=== PATIENT | female | born 1995 | race Caucasian/White ===

== ENCOUNTER 2018-05-24 23:35 | Inpatient (IN) | payer BC ==
[~2018-05-24] VITALS: Ht 162.6 cm; Wt 61.2 kg
[2018-05-24] MEDS ORDERED: birth control PO (23:48)
--- NOTE | 2018-05-24 23:54 | ER Report ---
History and Physical Time Seen By MD: 23:45 Hx. of Stated Complaint: Patient states she started feeling bad 1500, with a fever of 103. Also reports diarrhea and abdominal pain HPI/ROS CHIEF COMPLAINT: Diarrhea, abdominal pain, fever HISTORY OF PRESENT ILLNESS: 23-year-old female has had fever, lower abdominal pain and cramping, loose stool since 3 PM. She has not had bloody or black stool, denies mucus, and has not had recent antibiotics. She denies recent travel other than to [place] one month ago. She has no sick contacts. She has not gradually worse throughout the day with fever, chills, myalgias at this poi nt. She denies significant headache, sore throat, chest pain or trouble breathing, flank pain, change in urination, vaginal bleeding or discharge. Her last menstrual period was 3 weeks ago and this was normal for her. She denies rash, swollen extremities. Her abdominal pain is bilateral lower abdomen, crampy, moderate, constant, no significant exacerbating or relieving factors. REVIEW OF SYSTEMS: Constitutional: above Eyes: No discharge. ENT: No sore throat. Cardiovascular: No chest pain, no palpitations. Respiratory: No cough, no shortness of breath. Gastrointestinal: above Genitourinary: no dysuria Musculoskeletal: No back pain. Skin: No rashes. Neurological: No headache. Remainder of the 14 system rev: Yes Allergies: Coded Allergies: No Known Drug Allergies (Unverified , 05/24/18) Home Meds Reported Medications [ control ] No Conflict Check, 1 TAB PO DAILY 05/24/18 Reviewed Nurses Notes: Yes Constitutional Vital Sign - Last 24 Hours 05/24/18 05/24/18 05/25/18 05/25/18 23:38 23:39 00:05 00:30 Temp 100.3 Pulse 93 Resp 19 B/P (MAP) 122/76 122/76 (91) 115/66 (82) Pulse Ox 93 94 O2 Delivery Room Air 05/25/18 05/25/18 05/25/18 05/25/18 00:35 00:44 01:00 01:05 Temp 98.9 Pulse 121 123 B/P (MAP) 116/70 (85) Pulse Ox 95 94 05/25/18 05/25/18 05/25/18 05/25/18 01:30 02:00 02:05 02:10 Pulse 131 133 B/P (MAP) 114/71 (85) 106/69 (81) Pulse Ox 91 95 05/25/18 05/25/18 05/25/18 05/25/18 02:40 03:00 03:05 03:15 Temp 100.8 Pulse 130 121 122 B/P (MAP) 95/59 (71) Pulse Ox 95 95 05/25/18 05/25/18 05/25/18 05/25/18 03:22 03:30 03:35 04:00 B/P (MAP) 105/71 (82) 95/64 (74) 112/72 (85) Pulse Ox 96 05/25/18 05/25/18 05/25/18 05/25/18 04:05 04:10 04:15 04:22 Temp 98.0 Pulse 105 108 B/P (MAP) 114/74 (87) Pulse Ox 95 95 Intake and Output 05/24/18 05/24/18 05/25/18 15:00 23:00 07:00 Intake Total 3000 ml Balance 3000 ml Physical Exam General Appearance: The patient is alert, has no immediate need for airway protection and no signs of toxicity. Eyes: Pupils equal and round no pallor or injection. ENT, Mouth: Mucous membranes are moist. Respiratory: There are no retractions, lungs are clear to auscultation. Cardiovascular: tachycardia to 130 Gastrointestinal: hyperactive bowel sounds, mild bilateral lower quadrant ttp without peritoneal sgs or distension Neurological: alert, moves all ext Skin: Warm and dry, no rashes. Musculoskeletal: Extremities are nontender, nonswollen and have full range of motion. DIFFERENTIAL DIAGNOSIS: After history and physical exam differential diagnosis was considered for adult fever including but not limited to viral syndromes including influenza, urinary tract infection, pneumonia and sepsis.abdominal pain including but not limited to appendicitis, cholecystitis, gastritis and urinary tract infection. Medical Decision Making Data Points Result Diagram: 05/25/18 0345 05/25/18 0000 Laboratory Hematology Test 05/25/18 00:00 05/25/18 00:06 05/25/18 00:43 05/25/18 03:45 Sodium Level 136 mmol/L (137-145) Potassium Level 3.7 mmol/L (3.5-5.0) Chloride Level 109 mmol/L (98-107) Carbon Dioxide Level 17 mmol/L (22-31) Blood Urea Nitrogen 8 mg/dl (7-18) Creatinine 0.80 mg/dl (0.52-1.04) Glomerular Filtration Rate Calc > 60.0 Random Glucose 120 mg/dl (75-110) Calcium Level 9.6 mg/dl (8.4-10.2) Total Bilirubin 0.7 mg/dl (0.2-1.3) Aspartate Amino Transf (AST/SGOT) 22 U/L (0-35) Alanine Aminotransferase (ALT/SGPT) 26 U/L (0-56) Alkaline Phosphatase 70 U/L (0-126) Total Protein 7.7 g/dl (6.3-8.2) Albumin 4.4 g/dl (3.5-5.0) Lipase 108 U/L (23-300) Human Chorionic Gonadotropin, Qual Negative (NEGATIVE) Influenza Virus Type A (PCR) Negative (NEGATIVE) Influenza Virus Type B (PCR) Negative (NEGATIVE) Urine Color Yellow Urine Clarity Slightly-cloudy Urine pH 5.0 pH (4.8-9.5) Urine Specific [place] 1.027 Urine Protein 30 mg/dL (NEGATIVE) Urine Glucose (UA) Negative mg/dL (NEGATIVE) Urine Ketones 20 mg/dL (NEGATIVE) Urine Blood Negative (NEGATIVE) Urine Nitrite Negative (NEGATIVE) Urine Bilirubin Negative (NEGATIVE) Urine Urobilinogen Negative mg/dL (0.2-1.9) Urine Leukocyte Esterase Negative (NEGATIVE) Urine RBC 1 /HPF (0-2/HPF) Urine WBC 2 /HPF (0-5/HPF) Urine Squamous Epithelial Cells Many /LPF (</=FEW) Urine Transitional Epithelial Cells Few /LPF (NONE-FEW) Urine Bacteria Negative /HPF (NONE-FEW) Urine Mucus Few /HPF (NONE-FEW) Red Blood Count 4.26 M/uL (4.17-5.56) Mean Corpuscular Volume 89.3 fL (80.0-96.0) Mean Corpuscular Hemoglobin 30.4 pg (26.0-33.0) Mean Corpuscular Hemoglobin Concent 34.1 g/dL (32.0-36.0) Red Cell Distribution Width 12.5 % (11.5-14.5) Mean Platelet Volume 7.8 fL (7.2-11.1) Neutrophils (%) (Auto) % (39.4-72.5) Lymphocytes (%) (Auto) % (17.6-49.6) Monocytes (%) (Auto) % (4.1-12.4) Eosinophils (%) (Auto) % (0.4-6.7) Basophils (%) (Auto) % (0.3-1.4) Nucleated RBC Relative Count (auto) /100WBC Neutrophils # (Auto) K/uL (2.0-7.4) Lymphocytes # (Auto) K/uL (1.3-3.6) Monocytes # (Auto) K/uL (0.3-1.0) Eosinophils # (Auto) K/uL (0.0-0.5) Basophils # (Auto) K/uL (0.0-0.1) Nucleated RBC Absolute Count (auto) K/uL Neutrophils % (Manual) 55 % (39.4-72.5) Band Neutrophils % 33 % Lymphocytes % (Manual) 5 % (17.6-49.6) Monocytes % (Manual) 4 % (4.1-12.4) Eosinophils % (Manual) 0 % (0.4-6.7) Basophils % (Manual) 2 % (0.3-1.4) Metamyelocytes % 1 % Peripheral Blood Smear Yes Y/N Lactate 1.5 mmol/L (0.7-2.1) Chemistry Test 05/25/18 00:00 05/25/18 00:06 05/25/18 00:43 05/25/18 03:45 Glomerular Filtration Rate Calc > 60.0 Calcium Level 9.6 mg/dl (8.4-10.2) Total Bilirubin 0.7 mg/dl (0.2-1.3) Aspartate Amino Transf (AST/SGOT) 22 U/L (0-35) Alanine Aminotransferase (ALT/SGPT) 26 U/L (0-56) Alkaline Phosphatase 70 U/L (0-126) Total Protein 7.7 g/dl (6.3-8.2) Albumin 4.4 g/dl (3.5-5.0) Lipase 108 U/L (23-300) Human Chorionic Gonadotropin, Qual Negative (NEGATIVE) Influenza Virus Type A (PCR) Negative (NEGATIVE) Influenza Virus Type B (PCR) Negative (NEGATIVE) Urine Color Yellow Urine Clarity Slightly-cloudy Urine pH 5.0 pH (4.8-9.5) Urine Specific [place] 1.027 Urine Protein 30 mg/dL (NEGATIVE) Urine Glucose (UA) Negative mg/dL (NEGATIVE) Urine Ketones 20 mg/dL (NEGATIVE) Urine Blood Negative (NEGATIVE) Urine Nitrite Negative (NEGATIVE) Urine Bilirubin Negative (NEGATIVE) Urine Urobilinogen Negative mg/dL (0.2-1.9) Urine Leukocyte Esterase Negative (NEGATIVE) Urine RBC 1 /HPF (0-2/HPF) Urine WBC 2 /HPF (0-5/HPF) Urine Squamous Epithelial Cells Many /LPF (</=FEW) Urine Transitional Epithelial Cells Few /LPF (NONE-FEW) Urine Bacteria Negative /HPF (NONE-FEW) Urine Mucus Few /HPF (NONE-FEW) White Blood Count 15.1 k/uL (4.5-11.0) Red Blood Count 4.26 M/uL (4.17-5.56) Hemoglobin 13.0 g/dL (12.0-16.0) Hematocrit 38.0 % (34.0-47.0) Mean Corpuscular Volume 89.3 fL (80.0-96.0) Mean Corpuscular Hemoglobin 30.4 pg (26.0-33.0) Mean Corpuscular Hemoglobin Concent 34.1 g/dL (32.0-36.0) Red Cell Distribution Width 12.5 % (11.5-14.5) Platelet Count 222 K/uL (150-450) Mean Platelet Volume 7.8 fL (7.2-11.1) Neutrophils (%) (Auto) % (39.4-72.5) Lymphocytes (%) (Auto) % (17.6-49.6) Monocytes (%) (Auto) % (4.1-12.4) Eosinophils (%) (Auto) % (0.4-6.7) Basophils (%) (Auto) % (0.3-1.4) Nucleated RBC Relative Count (auto) /100WBC Neutrophils # (Auto) K/uL (2.0-7.4) Lymphocytes # (Auto) K/uL (1.3-3.6) Monocytes # (Auto) K/uL (0.3-1.0) Eosinophils # (Auto) K/uL (0.0-0.5) Basophils # (Auto) K/uL (0.0-0.1) Nucleated RBC Absolute Count (auto) K/uL Neutrophils % (Manual) 55 % (39.4-72.5) Band Neutrophils % 33 % Lymphocytes % (Manual) 5 % (17.6-49.6) Monocytes % (Manual) 4 % (4.1-12.4) Eosinophils % (Manual) 0 % (0.4-6.7) Basophils % (Manual) 2 % (0.3-1.4) Metamyelocytes % 1 % Peripheral Blood Smear Yes Y/N Lactate 1.5 mmol/L (0.7-2.1) Urinalysis Test 05/25/18 00:43 Urine Color Yellow Urine Clarity Slightly-cloudy Urine pH 5.0 pH (4.8-9.5) Urine Specific [place] 1.027 Urine Protein 30 mg/dL (NEGATIVE) Urine Glucose (UA) Negative mg/dL (NEGATIVE) Urine Ketones 20 mg/dL (NEGATIVE) Urine Blood Negative (NEGATIVE) Urine Nitrite Negative (NEGATIVE) Urine Bilirubin Negative (NEGATIVE) Urine Urobilinogen Negative mg/dL (0.2-1.9) Urine Leukocyte Esterase Negative (NEGATIVE) Urine RBC 1 /HPF (0-2/HPF) Urine WBC 2 /HPF (0-5/HPF) Urine Squamous Epithelial Cells Many /LPF (</=FEW) Urine Transitional Epithelial Cells Few /LPF (NONE-FEW) Urine Bacteria Negative /HPF (NONE-FEW) Urine Mucus Few /HPF (NONE-FEW) ED Course/Re-evaluation ED Course 23-year-old healthy female presents with fever, tachycardia, abdominal pain and diarrhea. Initial ED evaluation shows leukocytosis but otherwise unremarkable. After initial liter of fluids, patient remains tachycardic. CT shows colitis without evidence of complication such as abscess. I initiated oral antibiotics and second liter of fluids. Patient is feeling gradually improved however continues to be tachycardic, febrile, sweats. I offered admission versus continued monitoring. At this point patient is somewhat reticent to admission thus we'll continue to monitor and repeat fluids as well as initiate lactate repeat CBC and reassess. Despite 3000mL IVF, pt continues to be persistently tachycardic, chills; her rpt wbc is unchanged, though lactate is 1.5. Her rpt abd exam shows continued mild ttp without peritoneal sgs. At this point, I will admit for iv abx, further management. Consider atypical etiology including yersinia pestis/shigella though pt has not had diarrhea during ED stay. Pt hd stable other than continued tachycardia and fever on admission. Decision to Disposition Date: May 25, 2018 Decision to Disposition Time: 04:30 Depart Departure Latest Vital Signs Vital Signs Date Time Temp Pulse Resp B/P (MAP) Pulse Ox O2 Delivery O2 Flow Rate FiO2 05/25/18 04:22 98.0 05/25/18 04:15 114/74 (87) 05/25/18 04:10 108 95 05/24/18 23:38 19 Room Air Impression: Primary Impression: Colitis Additional Impression: Sepsis Condition: Condition Unchanged Disposition: Admitted from ER Problem Qualifiers Additional Impression: Sepsis Sepsis type: sepsis due to unspecified organism Qualified Codes: A41.9 - Sepsis, unspecified organism ELEONORA STRAUSS MD May 24, 2018 23:54
[2018-05-24] MEDS ORDERED: KETOROLAC 15 MG/ML VIAL IVP ONE (23:55)
[2018-05-24] MEDS ORDERED: NS(*) 0.9% 1000 ML BAG 1,000 ML IV ONE (23:55)
[2018-05-25 00:29] LABS: PLATELET COUNT, AUTOMATED 260 K/uL (150-450)
[2018-05-25] MEDS ORDERED: IOPAMIDOL 76% 50 ML INFUS BTL 100 ML ONE (01:24)
--- NOTE | 2018-05-25 01:57 | RADIOLOGY IMAGING REPORT ---
FACILITY: [facility] - [place] PATIENT NAME: Delaney Watts : 1995 MR: [id number] V: [id number] EXAM DATE: ORDERING PHYSICIAN: ELEONORA STRAUSS TECHNOLOGIST: Location: [facility] Patient: Delaney Watts : 1995 Visit/Account:[id number] Date of Sevice: 05/25/2018 CHEST: Indication: Fever and dyspnea. Technique: Frontal and lateral views were obtained. Comparison: None available. Skeletal and soft tissue structures: There is minimal levoscoliosis in the mid/lower thoracic spine. No acute skeletal deformity is identified. Heart and mediastinum: Within normal limits. Lung murray: Well-expanded and clear. No focal parenchymal opacities. Pleural spaces: Unremarkable. Impression: No acute process. Report Dictated By: James Bazzi MD at 05/25/2018 1:49 AM Report E-Signed By: James Bazzi MD at 05/25/2018 1:51 AM WSN:[id number]
--- NOTE | 2018-05-25 01:57 | RADIOLOGY IMAGING REPORT ---
[place] [facility] [place] NAME: Delaney Watts : 1995 MR: [id number] V: [id number] EXAM DATE: ORDERING PHYSICIAN: ELEONORA STRAUSS TECHNOLOGIST: Location: [facility] [place] Patient: Delaney Watts : 1995 Visit/Account:[id number] Date of Sevice: 05/25/2018 CT ABDOMEN PELVIS W/ CON HISTORY: Abdominal pain and nausea. TECHNIQUE: CT abdomen and pelvis with intravenous contrast. One of the following dose optimization techniques was utilized in the performance of this exam: Autom ated exposure control; adjustment of the mA and/or kV according to the patient's size; or use of an i terative reconstruction technique. Specific details can be referenced in the facility's radiology C T exam operational policy. CONTRAST: 75 mL Isovue-370. COMPARISON: None. FINDINGS: Visualized lung bases: Negative. Hepatobiliary: Negative. Spleen: Negative. Adrenals: Negative. Pancreas: Negative. Kidneys/: Negative. GI: Wall thickening of the ascending colon. Appendix is unremarkable. Vessels/spaces/nodes: Multiple borderline prominent right lower quadrant lymph nodes. No free fluid or free air. Bones/soft tissues: Negative. IMPRESSION: 1. Wall thickening of the ascending colon, likely related to an infectious/inflammatory colitis. 2. Borderline prominent right lower quadrant lymph nodes which are likely reactive. Report Dictated By: Win Hubbard MD at 05/25/2018 1:47 AM Report E-Signed By: Win Hubbard MD at 05/25/2018 1:50 AM WSN:[id number]
[2018-05-25] MEDS ORDERED: ONDANSETRON 4 MG/2 ML VIAL IVP ONE (02:05)
[2018-05-25] MEDS ORDERED: METRONIDAZOLE 500 MG TABLET PO ONE (02:25)
[2018-05-25] MEDS ORDERED: CIPROFLOXACIN 500 MG TAB PO ONE (02:25)
[2018-05-25] MEDS ORDERED: LR IV ONE (02:25)
[2018-05-25] MEDS ORDERED: ACETAMINOPHEN 325 MG TAB PO ONE (02:25)
[2018-05-25] MEDS ORDERED: APAP/HYDROCODONE 325/5 TAB PO ONE (02:25)
[2018-05-25 04:01] LABS: PLATELET COUNT, AUTOMATED 222 K/uL (150-450)
[2018-05-25 05:45] VITALS: BP 117/69
[2018-05-25] MEDS ORDERED: INFLUENZA VIRUS VAC 0.5ML SYR IM ONLY ONE (06:05)
--- NOTE | 2018-05-25 06:18 | History & Physical ---
History of Present Illness Chief Complaint Abdominal pain and fever History of Present Illness 23yo female with unremarkable PMHx. She reports some mild diffuse abdominal discomfort and occasional cramping with loose stools over past 2-3 weeks. She denied any bloody or mucousy stools. Her symptoms became much worse mid-day yesterday with some low back discomfort and increased anterior abdominal pain. She also noted fever and chilling episodes. Her temperature at home was in 101- 102F range. She denied any complaints. She is not currently sexually active. Her menses have been regular. She denied any skin changes/rashes. She reports recent travel to [place], but none outside the [facility]. She has shared her meals at [facility] over the past week and no one has reported similar illness. Prior to that, she was at home with her family and likewise, no one has been ill. She was evaluated in the ER and found to have fever, elevated WBC count, tachycardia, CT scan with possible ascending colitis changes. She was recommended for admission. History Problems: (1) Ovarian cyst Home Meds Reported Medications [ control ] No Conflict Check, 1 TAB PO DAILY 05/24/18 Allergies: Coded Allergies: No Known Drug Allergies (Unverified , 05/24/18) Patient History: Breast cancer MOTHER (Breast cancer) Other Social/Family Hx She lives in [facility]. She is not sexually active. Hx Smoking: No Caffeine Intake: Coffee Caffeine/Cups Per Day: redbull every other day Hx Alcohol Use: Yes Hx Substance Use Disorder: No Review of Systems Constitutional: Fever, Chills Cardiovascular: No Chest Pain, No Palpitations Respiratory: No Shortness of Breath Gastrointestinal: Nausea; No Vomiting; Diarrhea; No Hematemesis, No Hematochezia, No Melena; Abdominal Pain Genitourinary: No Dysuria, No Hematuria Exam Vital Signs Vital Signs Date Time Temp Pulse Resp B/P (MAP) Pulse Ox O2 Delivery O2 Flow Rate FiO2 05/25/18 05:47 95 05/25/18 05:45 98.9 110 18 117/69 (85) Room Air General Appearance: Alert, Awake Neuro: No Gross deficits Eyes: PERRLA ENT: Oropharynx Clear Neck: No Masses Cardiovascular: Regular Rate and Rhythm, No Edema, No JVD Respiratory: Clear to Auscultation Chest: No Tenderness GI: Other (Soft, but with reported mild tenderness over mid and lower abdomen. No guarding or rebound noted. BS present.) : No CVA Tenderness Extremities: Warm, Perfused Integumentary: Skin Intact without Lesion / Mass, Other (a few tatoos/piercin gs) Psych: Alert & Oriented X3 Medical Decision Making Data Points Result Diagram: 05/25/18 0345 05/25/18 0000 Item Value Date Time Human Chorionic Gonadotropin, Qual Negative 05/25/18 0006 Lactate 1.5 mmol/L 05/25/18 0345 Calcium Level 9.6 mg/dl 05/25/18 0000 Total Bilirubin 0.7 mg/dl 05/25/18 0000 Aspartate Amino Transf (AST/SGOT) 22 U/L 05/25/18 0000 Alanine Aminotransferase (ALT/SGPT) 26 U/L 05/25/18 0000 Alkaline Phosphatase 70 U/L 05/25/18 0000 Total Protein 7.7 g/dl 05/25/18 0000 Albumin 4.4 g/dl 05/25/18 0000 Lipase 108 U/L 05/25/18 0000 Urine Mucus Few /HPF 05/25/18 0043 Urine Bacteria Negative /HPF 05/25/18 0043 Urine Transitional Epithelial Cells Few /LPF 05/25/18 0043 Urine Squamous Epithelial Cells Many /LPF H 05/25/18 0043 Urine WBC 2 /HPF 05/25/18 0043 Urine RBC 1 /HPF 05/25/18 0043 Urine Leukocyte Esterase Negative 05/25/18 0043 Urine Urobilinogen Negative mg/dL 05/25/18 004 Urine Bilirubin Negative 05/25/18 0043 Urine Nitrite Negative 05/25/18 0043 Urine Blood Negative 05/25/18 0043 Urine Ketones 20 mg/dL H 05/25/18 0043 Urine Glucose (UA) Negative mg/dL 05/25/18 0043 Urine Protein 30 mg/dL 05/25/18 0043 Urine Specific [place] 1.027 05/25/18 0043 Urine pH 5.0 pH 05/25/18 0043 Urine Clarity Slightly-cloudy 05/25/18 004 Urine Color Yellow 05/25/18 0043 Influenza Virus Type B (PCR) Negative 05/25/185 Influenza Virus Type A (PCR) Negative 05/25/18 000 EKG / Imaging Imaging PATIENT NAME: Delaney Watts DOB: 1995 MR: [id number] V: [id number] EXAM DATE: ORDERING PHYSICIAN: ELEONORA STRAUSS TECHNOLOGIST: Location: [facility] [place] Patient: Delaney Watts : 1995 Visit/Account:[id number] Date of Sevice: 05/25/2018 CT ABDOMEN PELVIS W/ CON HISTORY: Abdominal pain and nausea. TECHNIQUE: CT abdomen and pelvis with intravenous contrast. One of the following dose optimization techniques was utilized in the performance of this exam: Automated exposure control; adjustment of the mA and/or kV according to the patient's size; or use of an iterative reconstruction technique. Specific details can be referenced in the facility's radiology CT exam operational policy. CONTRAST: 75 mL Isovue-370. COMPARISON: None. FINDINGS: Visualized lung bases: Negative. Hepatobiliary: Negative. Spleen: Negative. Adrenals: Negative. Pancreas: Negative. Kidneys/: Negative. GI: Wall thickening of the ascending colon. Appendix is unremarkable. Vessels/spaces/nodes: Multiple borderline prominent right lower quadrant lymph nodes. No free fluid or free air. Bones/soft tissues: Negative. IMPRESSION: 1. Wall thickening of the ascending colon, likely related to an infectious/inflammatory colitis. 2. Borderline prominent right lower quadrant lymph nodes which are likely reactive. Report Dictated By: Win Hubbard MD at 05/25/2018 1:47 AM Report E-Signed By: Win Hubbard MD at 05/25/2018 1:50 AM WSN:[id number] PATIENT NAME: Delaney Watts : 1995 MR: [id number] V: [id number] EXAM DATE: ORDERING PHYSICIAN: ELEONORA STRAUSS TECHNOLOGIST: Location: [facility] [place] Patient: Delaney Watts : 1995 Visit/Account:[id number] Date of Sevice: 05/25/2018 CHEST: Indication: Fever and dyspnea. Technique: Frontal and lateral views were obtained. Comparison: None available. Skeletal and soft tissue structures: There is minimal levoscoliosis in the mid/lower thoracic spine. No acute skeletal deformity is identified. Heart and mediastinum: Within normal limits. Lung murray: Well-expanded and clear. No focal parenchymal opacities. Pleural spaces: Unremarkable. Impression: No acute process. Report Dictated By: James Bazzi MD at 05/25/2018 1:49 AM Report E-Signed By: James Bazzi MD at 05/25/2018 1:51 AM WSN:[id number] Assessment and Plan Problems: (1) Abdominal pain Status: Acute Assessment & Plan: Based on work up thus far, it appears she probably has an acute colitis, most likely infectious. Will get stool culture and ova/parasites. She has been started on antibiotic therapy with IV Levaquin and Flagyl. Will give IV fluids, analgesics, and anti-emetics. May have general surgery review as well. Watch closely. Venous Thromboembolism Antithrombotics Is Pt On Any Antithrombotics?: No Prophylaxis Tx Contraindicated Pharmacological Contraindicati: Pt at Low Risk for VTE (She will mobilize) Exam Sepsis Risk: Sepsis Risk GERMAN BASS MD May 25, 2018 06:18
[2018-05-25] MEDS: NS(*) 0.9% 1000 ML BAG 1,000 ML IV PRN ×2 (06:32→20:42)
[2018-05-25 07:36] VITALS: BP 123/72
[2018-05-25] MEDS: metroNIDAZOLE* 500MG/100ML BAG 100 ML IVPB SCH ×3 (08:24→18:08)
[2018-05-25] MEDS: PROMETHAZINE 25 MG/ML 1 ML AMP IVP PRN ×2 (08:24→18:08)
[2018-05-25] MEDS: MORPHINE 2 MG/ML SYR IVP PRN ×4 (08:40→20:42)
[2018-05-25] MEDS ORDERED: LEVOFLOXACIN/D5W 750 MG/150 ML 150 ML IVPB SCH (10:00)
[2018-05-25 10:09] VITALS: Ht 162.6 cm; Wt 61.2 kg
[2018-05-25 13:37] VITALS: BP 123/68
[2018-05-25] MEDS: LEVOFLOXACIN/D5W 750 MG/150 ML 150 ML IVPB SCH (13:38)
[2018-05-25] MEDS: ACETAMINOPHEN 325 MG TAB PO PRN ×2 (13:47→20:41)
[2018-05-25 20:28] VITALS: BP 123/63
[2018-05-25 23:14] VITALS: BP 107/63
[2018-05-26] MEDS: metroNIDAZOLE* 500MG/100ML BAG 100 ML IVPB SCH ×4 (00:09→21:39)
[2018-05-26] MEDS: MORPHINE 2 MG/ML SYR IVP PRN ×3 (00:09→08:43)
[2018-05-26 03:36] VITALS: BP 122/70
[2018-05-26 06:00] LABS: PLATELET COUNT, AUTOMATED 192 K/uL (150-450)
[2018-05-26] MEDS: LACTOBACILLUS ACIDOPHILUS TAB PO SCH ×2 (10:34→17:34)
[2018-05-26] MEDS: APAP/HYDROCODONE 325/5 TAB PO PRN ×2 (10:44→17:37)
[2018-05-26 12:37] VITALS: BP 117/66
--- NOTE | 2018-05-26 13:20 | Hospitalist Progress Note ---
Subjective Progress Notes Subjective She was admitted with colitis. She reports no improvement in diarrhea. She has some decreased pain to her abdomen this morning. She had fever last night at 102.8. Patient Complains of: Cardiovascular: No: Chest Pain Respiratory: No: Shortness of Breath Physical Exam Vital Signs Date Time Temp Pulse Resp B/P (MAP) Pulse Ox O2 Delivery O2 Flow Rate FiO2 05/26/18 12:37 98.1 89 16 117/66 (83) 89 Room Air Intake and Output 05/26/18 00:00 Intake Total 4851 ml Balance 4851 ml Intake Oral 540 ml IV Total 4311 ml # Voids 4 # Bowel Movements 4 General Appearance: Alert, Awake, No Acute Distress Neuro: No Gross deficits Cardiovascular: Regular Rate and Rhythm Respiratory: No Respiratory Distress, Clear to Auscultation GI: Soft and Non-Tender Psych: Alert & Oriented X3, Appropriate Mood & Affect Result Diagram: 05/26/1853805/26/18538 Assessment and Plan Problems: (1) Colitis Status: Acute Assessment & Plan: Based on work up thus far, it appears she probably has an acute colitis, most likely infectious. Stool culture and ova/parasites pending. She has been started on antibiotic therapy with IV Levaquin and Flagyl. Will give IV fluids, analgesics, and anti-emetics. May have general surgery review as well. Watch closely. Will add probiotic today. WBC decreased today. Exam Sepsis Risk: No Definite Risk ANAHY HOLLEY May 26, 2018 13:20
[2018-05-26] MEDS: LEVOFLOXACIN/D5W 750 MG/150 ML 150 ML IVPB SCH (14:35)
[2018-05-26] MEDS: NS(*) 0.9% 1000 ML BAG 1,000 ML IV PRN (14:35)
[2018-05-26] MEDS: PROMETHAZINE 25 MG/ML 1 ML AMP IVP PRN (16:19)
[2018-05-26 23:01] VITALS: BP 94/56
[2018-05-27 03:35] VITALS: BP 105/63
[2018-05-27] MEDS: NS(*) 0.9% 1000 ML BAG 1,000 ML IV PRN (04:22)
[2018-05-27] MEDS: metroNIDAZOLE* 500MG/100ML BAG 100 ML IVPB SCH (04:22)
[2018-05-27] MEDS: APAP/HYDROCODONE 325/5 TAB PO PRN (05:36)
[2018-05-27 06:13] LABS: PLATELET COUNT, AUTOMATED 185 K/uL (150-450)
[2018-05-27] MEDS: LACTOBACILLUS ACIDOPHILUS TAB PO SCH (08:19)
[2018-05-27 08:49] VITALS: BP_SYST 119; BP_DIAS 7; BP_DIAS 70
[2018-05-27] MEDS ORDERED: LEVO750T44 PO (09:06)
[2018-05-27] MEDS ORDERED: METR-1 PO (09:06)
[2018-05-27] MEDS ORDERED: LOR5/325 PO (09:06)
--- NOTE | 2018-05-27 09:14 | Hospitalist Depart ---
Discharge Summary Reason for Hosp/Final Diag: (1) Colitis Status: Acute Hospital Course & Plan: Based on work up thus far, it appears she probably has an acute colitis, most likely infectious. Stool culture negative and ova/parasites pending. She was started on antibiotic therapy with IV Levaquin and Flagyl. She was given IV fluids, analgesics, and anti-emetics and probiotic. WBC decreased now. She will follow up in 1-2 weeks with PCP. She should use alternate control while on antibiotics. She was advised to not drink alcohol while on Flagyl. Departure Latest Vital Signs Vital Signs 05/27/18 08:49 Temp 97.6 Pulse 88 Resp 16 B/P (MAP) 119/7 (44) Pulse Ox 96 O2 Delivery Room Air Weight (Pounds): 135 Result Diagram: 05/27/1852 05/27/1852 Condition: Improved Discharge: Home, Self Care Discharge Instructions Home Meds Active Scripts Hydrocodone Bit/Acetaminophen (HYDROCODON-ACETAMINOPHEN 5-325) 1 Each Tablet, 1 EACH PO Q4-6H PRN for PAIN, #10 TAB Prov:ANAHY HOLLEY 05/27/18 Levofloxacin 750 Mg Tab (LEVAQUIN 750 MG TAB) 750 Mg Tablet, 750 MG PO DAILY, #5 TAB Prov:ANAHY HOLLEY 05/27/18 Metronidazole (FLAGYL) 500 Mg Tablet, 500 MG PO TID, #15 TAB Prov:ANAHY HOLLEY 05/27/18 Reported Medications [ control ] No Conflict Check, 1 TAB PO DAILY 05/24/18 Diet: Regular Activity: As Tolerated Special Instructions: Follow up in 1-2 weeks with Primary Care Provider. Use alternate control while on antibiotics. Do not drink alcohol while on Flagyl. Increase hydration while on antibotics. Levaquin can cause tendon rupture. Be careful with running, weight lifting for next 3 weeks. Venous Thromboembolism Antithrombotics Is Pt On Any Antithrombotics?: ANAHY Urrutia May 27, 2018 09:14
[2018-05-27] MEDS: PROMETHAZINE 25 MG/ML 1 ML AMP IVP PRN (09:54)
--- NOTE | 2018-05-27 10:47 | Antimicrobial Stewardship ---
Antimicrobial Stewardship Empiricly appropriate: Yes Support empiric regimen: Yes Appropriate dose for site: Yes Reviewed for Drug Interaction: Yes Comment Antibiotics and oral contraceptives -- may decrease efficacy of contraception, recommend second form of control Monitored for Toxicities: Yes Clinically stable/improving: Yes IV to PO Opportunity: Yes Determine cumulative duration: Today is day 3 Determine standard duration: 7-10 days Comment 23 yo F with infectious colitis who presented with dehydration, N/V, and diarrhea. Elevated WBC and temp, now within normal limits. Pt no longer with diarrhea or N/V. Plan to d/c home today. Continue oral metronidazole and levofloxacin for a total of 7 days. Anita Porter, PharmD, OP ANITA PORTER May 27, 2018 10:47
== END 2018-05-27 10:20 | disposition home or self-care (01) | DRG 392 ==
LOC: ER 23:38 → MED 05-25 05:03
PROVIDERS: ADMIT Internal Medicine; ATTEND Internal Medicine
DX: A09 Infectious gastroenteritis and colitis, unspecified (principal)
CPT/HCPCS: 36415; 71046; 74177; 81001; 82040; 82247; 82310; 82374; 82435; 82565; 82947; 83605; 83690; 84075; 84132; 84155; 84295; 84450; 84460; 84520; 84703; 85025; 87040; 87045; 87177; 87205; 87502; 96361; 96374; 96375; 99284; J1885; J1956; J2270; J2405; J2550; J3490; J7030; J7120; Q9967